=== PATIENT | male | born 2000 | race African-American/Black ===

== ENCOUNTER 2023-08-04 15:47 | Emergency (ER) | payer MEDICAID, OTHER ==
[~2023-08-04] VITALS: Ht 180.3 cm; Wt 75.8 kg
[2023-08-04 15:58] VITALS: TEMP 97
[2023-08-04 16:02] VITALS: BP 128/67; PULSE 86; RESP 16; O2SAT 96
[2023-08-04] MEDS: cefTRIAXone SOD 500 MG VL IM ONE (16:19)
[2023-08-04 16:39] LABS: Urine Bacteria None Seen /hpf (None Seen)
[2023-08-04 16:48] LABS: Urine Blood Negative /uL (Negative); Urine Clarity Clear (Clear); Urine Color Light-Yellow (Yellow); Urine Mucus FEW (None Seen); Urine Protein, UAD TRACE (Negative); Urine Specific Gravity 1.032 (1.001-1.035); Urine Urobilinogen Normal (Negative); Urine WBC 23 /hpf (0 - 3)
[2023-08-04] MEDS ORDERED: DOXY-286 PO (16:59)
[2023-08-06 10:07] LABS: RPR Non Reactive (Non Reactive)
[2023-08-07 02:06] LABS: Chlamydia Trachomatis, NAA Negative (Negative); Neisseria gonorrhoeae, NAA Negative (Negative)
== END 2023-08-04 16:59 | disposition home or self-care (01) ==
LOC: ER 15:47
DX: R36.9 Urethral discharge, unspecified (principal); Z20.6 Contact with and (suspected) exposure to human immunodeficiency virus [HIV]; Z72.51 High risk heterosexual behavior
CPT/HCPCS: 81001; 86592; 86703; 87491; 87591; 96372; 99283; J0696

== ENCOUNTER 2023-08-29 21:38 | Emergency (ER) | payer MEDICAID ==
[~2023-08-29] VITALS: Ht 177.8 cm; Wt 76.4 kg
[~2023-08-29 21:38] MED LIST: DOXY-286 PO
[2023-08-29 22:35] LABS: Urine Bacteria None Seen /hpf (None Seen)
[2023-08-29 22:47] LABS: Urine Blood Negative /uL (Negative); Urine Clarity Clear (Clear); Urine Color Yellow (Yellow); Urine Mucus FEW (None Seen); Urine Protein, UAD 1+ (Negative); Urine Specific Gravity 1.036 (1.001-1.035); Urine Urobilinogen 3 mg/dL (Negative); Urine WBC 26 /hpf (0 - 3)
[2023-08-30 00:59] VITALS: BP 141/91; PULSE 96; RESP 20; TEMP 98.3; O2SAT 98
[2023-08-30] MEDS: AZITHROMYCIN 250 MG TAB PO ONE (02:34)
[2023-08-30] MEDS: cefTRIAXone SOD 500 MG VL IM ONE (02:35)
[2023-09-01 01:06] LABS: Chlamydia Trachomatis, NAA Negative (Negative); Neisseria gonorrhoeae, NAA Negative (Negative)
== END 2023-08-30 02:57 | disposition home or self-care (01) ==
LOC: ER 21:38
DX: R36.9 Urethral discharge, unspecified (principal)
CPT/HCPCS: 81001; 87491; 87591; 96372; 99283; J0696